=== PATIENT | male | born 1950 | race Caucasian/White ===

== ENCOUNTER → 2019-05-26 | Outpatient (CLI) | payer MEDICARE ==
--- NOTE | 2019-05-26 11:45 | Diagnostic Imaging Report ---
EXAM: Renal Ultrasound INDICATION: ^[id number] ^MICROSCOPIC HEMATURIA COMPARISON: None TECHNIQUE: Transverse and longitudinal images of the kidneys and bladder were obtained. FINDINGS: Right Kidney: Length: 12.2 cm Appearance: Normal echogenicity. Collecting system: No hydronephrosis Stones: None Cyst/Mass: Upper pole exophytic cyst measures 7.0 x 9.3 x 9.2 cm and contains a thin internal septations. Left Kidney: Length: 11.2 cm Appearance: Normal echogenicity. Collecting system: No hydronephrosis Stones: None Cyst/Mass: None Bladder: No mass or calculi. Bilateral ureteral jets visualized. Prevoid volume estimate of 138cc Prostate measures 2.7 x 2.3 x 2.5 cm, volume estimate of 6 cc. IMPRESSION: No renal calculi or hydronephrosis. Right upper pole exophytic 7.0 9.3 x 9.2 cm cyst with thin internal septations (Bosniak 2). Signed by: Yaakov Davis MD on 05/26/2019 11:42 AM
== END ==
LOC: US 10:53
PROVIDERS: ATTEND Urology
DX: R31.21 Asymptomatic microscopic hematuria (principal)
CPT/HCPCS: 76770

== ENCOUNTER → 2020-09-27 | Outpatient (CLI) | payer MEDICARE | LOC: RAD 13:45 | PROVIDERS: ATTEND Urology | DX: N20.0 Calculus of kidney (principal) | CPT/HCPCS: 74018 ==

== ENCOUNTER → 2020-12-13 | Outpatient (CLI) | payer MEDICARE | LOC: US 09:39 | PROVIDERS: ATTEND Urology | DX: N20.0 Calculus of kidney (principal) | CPT/HCPCS: 76770 ==